=== PATIENT | male | born 1985 | race Caucasian/White ===

== ENCOUNTER 2018-03-09 18:06 | Emergency (ER) | payer BC ==
[2018-03-09] MEDS ORDERED: Diphtheria,Pertussis(Acell),Tetanus Vaccine 0.5 ML Syringe IM ONE (19:31)
[2018-03-09] MEDS ORDERED: Lidocaine 1% 20 ML MDV INJECT ONE (19:34)
--- NOTE | 2018-03-09 19:42 | EDM.PDOC ---
ED HPI GENERAL MEDICAL PROBLEM - General Chief Complaint: Laceration Stated Complaint: LACERATION RT MIDDLE FINGER Time Seen by Provider: 03/09/18 19:40 Source of Information: Reports: Patient History Limitations: Reports: No Limitations - History of Present Illness INITIAL COMMENTS - FREE TEXT/NARRATIVE: HISTORY AND PHYSICAL: [] 33-year-old male presenting with laceration to the right middle finger History of Present Illness: []Single man was putting a sprinkler system and his yard and slipped with a knife cutting the tip of his finger Review of Systems: As per history of present illness and below otherwise all systems reviewed and negative. Past medical history: As per history of present illness and as reviewed below otherwise noncontributory. Surgical history: As per history of present illness and as reviewed below otherwise noncontributory. Social history: No reported history of drug or alcohol abuse. Family history: As per history of present illness and as reviewed below otherwise noncontributory. Physical exam: Alert and oriented male answering questions in full sentences without any shortness of breath. HEENT: Atraumatic, normocehpalic, pupils reactive, negative for conjunctival pallor or scleral icterus, mucous membranes moist, throat clear, neck supple, nontender, trachea midline. Lungs: Clear to auscultation, breath sounds equal bilaterally, chest non tender. Heart: S1S2, regular, negative for clicks, rubs, or JVD. Abdomen: Soft, nondistended, nontender. Negative for masses or hepatossplenmegaly. Negative for costovertebral tenderness. Pelvis: Stable nontender. Genitourinary: Deferred. Rectal: Deferred Extremities: traumatic laceration to the middle right finger craig surface, negative for cords or calf pain. Neurovascular unremarkable. Neuro: Awake, alert, oriented. Cranial nerves II through XII unremarkable. Cerebellum unremarkable. Motor and sensory unremarkable throughout. Exam nonfocal. Diagnostics: [] Therapeutics: []Sutures Impression: []Laceration with repair Plan: [] discharge home Keep Area clean and dry Sutures out in 7 days Definitive disposition and diagnosis as appropriate pending reevaluation and review of above. Onset: Today, Sudden Duration: Hour(s): Location: Reports: Upper Extremity, Right Quality: Reports: Stabbing Severity: Severe Improves with: Reports: None Worsens with: Reports: None Associated Symptoms: Reports: No Other Symptoms Right 3rd Finger Pain Score (Numeric/FACES): 2 - Related Data Allergies Allergy/AdvReac Type Severity Reaction Status Date / Time levofloxacin [From Levaquin] Allergy Rash Verified 02/07/14 14:39 moxifloxacin HCl Allergy Rash Verified 02/07/14 14:39 [From Avelox] Penicillins Allergy Swelling Verified 03/09/18 18:14 Home Meds: Home Meds Cetirizine [ZyrTEC] 10 mg PO DAILY 03/09/18 [History] Cholecalciferol (Vitamin D3) [Vitamin D] 5,000 unit PO DAILY 03/09/18 [History] Multivitamin [Multivitamins] 1 cap PO DAILY 03/09/18 [History] Past Medical History - Past Health History Medical/Surgical History: Denies Medical/Surgical History - Infectious Disease History Infectious Disease History: Reports: Chicken Pox Social & Family History - Family History Family Medical History: Noncontributory - Tobacco Use Smoking Status *Q: Never Smoker - Caffeine Use Caffeine Use: Reports: Coffee - Recreational Drug Use Recreational Drug Use: No ED ROS GENERAL - Review of Systems Review Of Systems: ROS reveals no pertinent complaints other than HPI. ED EXAM, SKIN/RASH Exam: See Below (see dictation) ED SKIN PROCEDURES - Laceration/Wound Repair Right Posterior Medial Finger Lac/Wound length In cm: 2.5 Appearance: Subcutaneous, Clean Distal NVT: Neuro & Vascular Intact, No Tendon Injury Anesthetic Type: Digital Local Anesthesia - Lidocaine (Xylocaine): 1% Plain Local Anesthetic Volume: 4cc Skin Prep: Chlorhexidine (Hibiciens), Saline Exploration/Debridement/Repair: Wound Explored, In a Bloodless Field, Explored to Base Closed with: Sutures Suture Size: 4-0 # of Sutures: 3 Suture Type: Nylon, Interrupted, Simple Drain Placement: No Sterile Dressing Applied: Nurse Tetanus Status Addressed: Yes Course - Vital Signs Last Recorded V/S: Last Vital Signs Temp 36.8 C 03/09/18 18:12 Pulse 81 03/09/18 18:12 Resp 18 03/09/18 18:12 BP 153/95 H 03/09/18 18:12 Pulse Ox 95 03/09/18 18:12 - Orders/Labs/Meds Orders: Active Orders 24 hr Category Date Time Status Vaccines to be Administered [RC] PER UNIT ROUTINE Care 03/09/18 19:31 Active Meds: Medications Discontinued Medications Generic Name Dose Route Start Last Admin Trade Name Lucille PRN Reason Stop Dose Admin Bacitracin 1 dose 03/09/18 19:44 Bacitracin Oint 1 Gm TOP 03/09/18 19:45 ONETIME ONE Diphtheria/Tetanus/Acell Pertussis 0.5 ml 03/09/18 19:31 03/09/18 19:40 Adacel IM 03/09/18 19:32 0.5 ml .ONCE ONE Administration Lidocaine HCl 20 ml 03/09/18 19:34 03/09/18 19:40 Xylocaine 1% INJECT 03/09/18 19:35 20 ml ONETIME ONE Administration Departure - Departure Time of Disposition: 20:00 Disposition: Home, Self-Care 01 Condition: Good Clinical Impression: Laceration - Discharge Information Instructions: Stitches, Eagle, or Adhesive Wound Closure, [id number], Laceration Care, Adult, [id number] Referrals: PCP,None [Primary Care Provider] - Forms: ED Department Discharge Additional Instructions: The following information is given to patients seen in the emergency department who are being discharged to home. This information is to outline your options for follow-up care. We provide all patients seen in our emergency department with a follow-up referral. The need for follow-up, as well as the timing and circumstances, are variable depending upon the specifics of your emergency department visit. If you don't have a primary care physician on staff, we will provide you with a referral. We always advise you to contact your personal physician following an emergency department visit to inform them of the circumstance of the visit and for follow-up with them and/or the need for any referrals to a consulting specialist. The emergency department will also refer you to a specialist when appropriate. This referral assures that you have the opportunity for followup care with a specialist. All of these measure are taken in an effort to provide you with optimal care, which includes your followup. Under all circumstances we always encourage you to contact your private physician who remains a resource for coordinating your care. When calling for followup care, please make the office aware that this follow-up is from your recent emergency room visit. If for any reason you are refused follow-up, please contact the [facility] emergency department at and asked to speak to the emergency department charge nurse. Follow-up for suture removal in 7 days Ons of infection have been reviewed any of these occur return to emergency room for reevaluation - My Orders Last 24 Hours: My Active Orders 03/09/18 19:31 Vaccines to be Administered [RC] PER UNIT ROUTINE - Assessment/Plan Last 24 Hours: My Active Orders 03/09/18 19:31 Vaccines to be Administered [RC] PER UNIT ROUTINE
[2018-03-09] MEDS ORDERED: Bacitracin Oint 1 GM U/D Packet TOP ONE (19:44)
== END 2018-03-09 20:05 | disposition home or self-care (01) ==
LOC: MW.ED 18:06
DX: S61.212A Laceration without foreign body of right middle finger without damage to nail, initial encounter (principal); Z23 Encounter for immunization; Z88.1 Allergy status to other antibiotic agents; Z88.0 Allergy status to penicillin; Z79.899 Other long term (current) drug therapy; W26.0XXA Contact with knife, initial encounter; Y92.096 Garden or yard of other non-institutional residence as the place of occurrence of the external cause
CPT/HCPCS: 90471; 90715; 99283-25

== ENCOUNTER 2018-03-16 15:49 | Emergency (ER) | payer BC | END 2018-03-16 16:11 | disposition left against medical advice (07) | LOC: MW.ED 15:49 | DX: Z53.21 Procedure and treatment not carried out due to patient leaving prior to being seen by health care provider (principal) ==